=== PATIENT | female | born 1980 | race Asian ===

== ENCOUNTER 2019-05-08 08:23 | Day surgery (SDC) | payer BC ==
[~2019-05-08] VITALS: Ht 165.1 cm; Wt 61.7 kg
[~2019-05-08 08:23] MED LIST: LACTATED RINGERS 1,000 ML IV SCH
[2019-05-08 09:20] LABS: UCG SCREEN NEGATIVE
[2019-05-08] MEDS ORDERED: FERR325T6 PO (10:58)
[2019-05-08] MEDS ORDERED: [UNRECOGNIZED DRUG - CODE] PO (10:58)
[2019-05-08] MEDS ORDERED: MULT-1146 PO (10:58)
[2019-05-08] MEDS ORDERED: IBUP-1653 PO (10:58)
[2019-05-08] MEDS ORDERED: VASOPRESSIN 20 UNIT/ML 1ML ONE (12:12)
[2019-05-08] MEDS ORDERED: HYDROCODONE/ACETAMINOPHEN 5/325MG TABLET PO PRN ×2 (12:15)
[2019-05-08] MEDS ORDERED: MORPHINE SULFATE 4 MG/ML CPJ (NOT FOR IM USE) IV PRN (12:15)
[2019-05-08] MEDS ORDERED: ONDANSETRON HCL 4MG/2ML INJ IV PRN (12:15)
[2019-05-08] MEDS ORDERED: BUPIVACAINE HCL/PF 0.25% (2.5MG/ML) 10ML ONE (12:26)
[2019-05-08] MEDS ORDERED: FENTANYL CITRATE/PF 50MCG/ML 2ML VIAL ONE (12:31)
[2019-05-08] MEDS ORDERED: MIDAZOLAM HCL 2 MG/2 ML VIAL ONE ×2 (12:32→12:38)
[2019-05-08] MEDS ORDERED: DIPHENHYDRAMINE 50MG/ML VIAL ONE (12:32)
[2019-05-08] MEDS ORDERED: SODIUM CHLORIDE 0.9% 10ML VIAL ONE (12:40)
[2019-05-08] MEDS ORDERED: CEFAZOLIN SODIUM 1000MG/VIAL ONE (12:40)
[2019-05-08] MEDS ORDERED: PROPOFOL 200MG/20ML VIAL IV ONE (12:42)
[2019-05-08] MEDS ORDERED: HYDROMORPHONE HCL/PF 2MG/ML CPJ IV PRN (14:00)
== END 2019-05-08 15:50 | disposition home or self-care (01) ==
LOC: OR 08:23
PROVIDERS: ATTEND Obstetrics & Gynecology
DX: D06.9 Carcinoma in situ of cervix, unspecified (principal); D25.9 Leiomyoma of uterus, unspecified; N92.1 Excessive and frequent menstruation with irregular cycle; Z79.899 Other long term (current) drug therapy
CPT/HCPCS: 57522; 58561; 81025; 88305; J0690; J1200; J2250; J2704; J3010; J3490